=== PATIENT | female | born 1955 | race African-American/Black ===

== ENCOUNTER 2018-08-12 13:28 | Emergency (ER) | payer OTHER ==
--- NOTE | 2018-08-12 13:55 | PDOC ---
Rapid Medical Evaluation Chief Complaint: Blood Pressure Problem Time Seen by Provider: 08/12/18 13:50 Medical Evaluation: Allergies Allergy/AdvReac Type Severity Reaction Status Date / Time codeine Allergy Verified 08/12/18 13:47 08/12/18 13:51 I have performed a brief in-person evaluation of this patient. The patient presents with a chief complaint of:h/o HTN sent from urgent care due to feeling lightheadedness and elevated BP of 170s/90s . PT report going through lot of family issues with mother and has been anxious. Denies CP, SOB, palpitations, numbness or tingling sensation. Denies N/V Pertinent physical exam findings: no acute distress. heart RRR. lungs CTAB I have ordered the following: CBC,CMP, cardiac profile, EKG The patient will proceed to the ED for further evaluation. Discharge Disposition - Diagnosis Light-headed feeling - Discharge Dispostion Condition at time of disposition: Stable - Referrals - Patient Instructions - Post Discharge Activity
[2018-08-12 13:57] VITALS: TEMP 97.8; BMI 43.2
[2018-08-12] MEDS ORDERED: VALSARTAN 160 MG TABLET (UD) PO ONE (14:32)
[2018-08-12] MEDS ORDERED: amLODIPine BESYLATE 10 MG TABLET (FP) PO ONE (14:32)
[2018-08-12 14:33] LABS: BASO % 1.1 % (0-2.0); EOS % 3.7 % (0-4.5); HEMATOCRIT 41.8 % (35.4-49); HEMOGLOBIN 14.4 GM/dL (11.7-16.9); LYMPH % 30.6 % (8-40); MCH 28.9 pg (25.7-33.7); MCHC 34.5 g/dl (32.0-35.9); MEAN CELL VOLUME 83.7 fl (80-96); MEAN PLT VOLUME 8.8 fl (7.5-11.1); MONO % 9.5 % (3.8-10.2); NEUT % 55.1 % (42.8-82.8); PLATELET COUNT 254 K/MM3 (134-434); RBC 4.99 M/mm3 (4.00-5.60); WHITE BLOOD COUNT 6.5 K/mm3 (4.0-10.0)
[2018-08-12] MEDS ORDERED: amLODIPine BESYLATE 5 MG TABLET (FP) ONE (14:34)
[2018-08-12] MEDS ORDERED: VALSARTAN 80 MG TABLET (UD) ONE (14:34)
[2018-08-12 15:04] LABS: ALBUMIN 3.9 g/dl (3.4-5.0); ALK PHOS 105 U/L (45-117); ANION GAP 6 MMOL/L (8-16); BILIRUBIN,TOTAL 1.1 mg/dL (0.2-1); BLOOD UREA NITROGEN 17 mg/dL (7-18); CALCIUM 9.4 mg/dL (8.5-10.1); CHLORIDE 97 mmol/L (98-107); CO2 33 mmol/L (21-32); CREATININE 1.1 mg/dL (0.55-1.3); GLUCOSE,RANDOM 177 mg/dL (74-106); SGOT/AST 39 U/L (15-37); SGPT/ALT 35 U/L (13-61); SODIUM 137 mmol/L (136-145)
--- NOTE | 2018-08-12 15:28 | PDOC ---
History of Present Illness - General Chief Complaint: Blood Pressure Problem Stated Complaint: SENT BY PCP/HYPERTENSION Time Seen by Provider: 08/12/18 13:50 History Source: Patient Exam Limitations: No Limitations - History of Present Illness Initial Comments: 08/12/18 15:19 62 yo female pmh of DM, HTN and HLD presents to the ED from urgent care for elevated BP. Pt states she has been having a strange dull sensation over the top of her head for the past couple of days not described as past migraines she has had which was the reason for her urgent care visit. BP in the 170s found at urgent care, baseline 1302-140s, pt told to go to ER. Pt denies LOC, ZHANG, changes in vision or speech, weakness or numbness down 1 side of her body, CP, SOB, back pain or abdominal pain. Pt states she feels at baseline and has no further complaints Past History - Past Medical History Allergies/Adverse Reactions: Allergies Allergy/AdvReac Type Severity Reaction Status Date / Time codeine Allergy Verified 08/12/18 13:47 Home Medications: Ambulatory Orders Amlodipine Besylate [Norvasc -] 10 mg PO DAILY 08/12/18 Aspirin [ASA -] 81 mg PO DAILY 08/12/18 Azelastine HCl [Astepro] 1 - 2 spr NS BID 08/12/18 Chlorthalidone [Hygroton -] mg PO DAILY 08/12/18 Flu Vac Qs 18-19(4Yr Up)Maira/Pf [Flucelvax Quad 9611-1138 Syr] mcg IM ASDIR 08/12 Fluticasone Prop 0.05% Nasal [Flonase -] 1 - 2 spray NS DAILY 08/12/18 Metformin HCl [Glucophage] mg PO ASDIR 08/12/18 Potassium Chloride [Klor-Con] meq PO DAILY 08/12/18 Simvastatin mg PO HS 08/12/18 Valsartan 160 mg PO DAILY 08/12/18 Asthma: Yes COPD: No Diabetes: Yes HTN: Yes Hypercholesterolemia: Yes - Suicide/Smoking/Psychosocial Hx Smoking History: Never smoked Review of Systems - Review of Systems Constitutional: No: Chills, Fever Respiratory: No: Shortness of Breath Cardiac (ROS): No: Chest Pain, Palpitations, Syncope ABD/GI: No: Nausea, Vomiting : No: Flank Pain, Incontinence Neurological: Yes: Other (dull sensation to top of her head. Resolved). No: Headache, Numbness, Paresthesia, Unsteady Gait, Ataxia, Dizziness *Physical Exam - Vital Signs Last Vital Signs Temp Pulse Resp BP Pulse Ox 97.8 F 91 H 18 173/103 H 98 08/12/18 13:56 08/12/18 14:27 08/12/18 14:27 08/12/18 14:27 08/12/18 13:56 - Physical Exam General Appearance: Yes: Nourished, Appropriately Dressed. No: Apparent Distress (pt resting comfortably on stretcher, on her phone) HEENT: positive: EOMI, CHELSIE, Normal Voice, Hearing Grossly Normal Neck: positive: Supple Respiratory/Chest: positive: Lungs Clear, Normal Breath Sounds. negative: Accessory Muscle Use, Crackles, Rales, Rhonchi, Wheezing Cardiovascular: positive: Regular Rhythm, Regular Rate, S1, S2. negative: Edema , JVD, Murmur Vascular Pulses: Dorsalis-Pedis (R): 4+, Doralis-Pedis (L): 4+ Gastrointestinal/Abdominal: positive: Flat, Soft. 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 negative : Facial Droop, Numbness, Sensory Deficit, Confused, Disoriented, Babinski Moderate Sedation - Procedure Monitoring Vital Signs: Procedure Monitoring Vital Signs Temperature 97.8 F 08/12/18 13:56 Pulse Rate 91 H 08/12/18 14:27 Respiratory Rate 18 08/12/18 14:27 Blood Pressure 173/103 H 08/12/18 14:27 O2 Sat by Pulse Oximetry (%) 98 08/12/18 13:56 ED Treatment Course - LABORATORY CBC & Chemistry Diagram: 08/12/18 14:19 08/12/18 14:19 - ADDITIONAL ORDERS Additional order review: Laboratory Results 08/12/18 14:19 Sodium 137 Potassium 4.0 Chloride 97 L Carbon Dioxide 33 H Anion Gap 6 L BUN 17 Creatinine 1.1 Creat Clearance w eGFR > 60 Random Glucose 177 H Calcium 9.4 Total Bilirubin 1.1 H AST 39 H ALT 35 Alkaline Phosphatase 105 Creatine Kinase 142 Troponin I < 0.02 Total Protein 8.0 Albumin 3.9 08/12/18 14:19 RBC 4.99 MCV 83.7 MCHC 34.5 RDW 13.0 MPV 8.8 Neutrophils % 55.1 Lymphocytes % 30.6 Monocytes % 9.5 Eosinophils % 3.7 Basophils % 1.1 - RADIOLOGY Radiology Studies Ordered: Category Date Time Status HEAD CT WITHOUT CONTRAST [CT] Stat CT Scan 08/12/18 15:14 Ordered - Medications Given in the ED: ED Medications Discontinued Medications Generic Name Dose Route Start Last Admin Trade Name Freq PRN Reason Stop Dose Admin Amlodipine Besylate 10 mg 08/12/18 14:32 08/12/18 14:36 Norvasc - PO 08/12/18 14:33 10 mg ONCE ONE Administration Valsartan 160 mg 08/12/18 14:32 08/12/18 14:36 Diovan - PO 08/12/18 14:33 160 mg ONCE ONE Administration Medical Decision Making - Medical Decision Making 08/12/18 17:14 62 yo female pmh of DM, HTN and HLD presents to the ED from urgent care for elevated BP. Pt states she has been having a strange dull sensation over the top of her head for the past couple of days not described as past migraines she has had which was the reason for her urgent care visit. BP in the 170s found at urgent care, baseline 1302-140s, pt told to go to ER. Pt denies LOC, ZHANG, changes in vision or speech, weakness or numbness down 1 side of her body, CP, SOB, back pain or abdominal pain. Pt states she feels at baseline and has no further complaints Pt admits to not taking her BP medications today because she was in a willingham to leavee the house but this is an isolated incident since she consistently takes her medications as prescribed. Pt also admits to recent stress due to her mother becoming ill. Vital show elevated BP, otherwise wnl EKG NSR Labs wnl, trop negative, no CP or atypical cardiac symptoms head CT no acute path Pt given home dosed BP medications, reduced BP and is safe for DC home with PCP fu and strict return precautions Understands plan *DC/Admit/Observation/Transfer Diagnosis at time of Disposition: Light-headed feeling, Elevated blood pressure reading - Discharge Dispostion Disposition: HOME Condition at time of disposition: Stable - Referrals Referrals: ON STAFF,NOT [Primary Care Provider] - - Patient Instructions Printed Discharge Instructions: DI for High Blood Pressure Additional Instructions: Please make an appointment with your primary care doctor within the next 48 hours, continue taking your home dosed medications. Return to the ER for new or concerning symptoms including but not limited to: chest pain, severe headaches, loss of consciousness, changes in vision or speech or weakness on 1 side of your body. Thank you - Post Discharge Activity
--- NOTE | 2018-08-12 15:28 | PDOC ---
Documentation entered by Margaret Calix SCRIBE, acting as scribe for Chay Islas MD. Attending Attestation - Resident Resident Name: Mike Worrell - ED Attending Attestation I have performed the following: I have examined & evaluated the patient, The case was reviewed & discussed with the resident, I agree w/resident's findings & plan - HPI HPI: 08/12/18 14:31 The patient is a 62 year old female, with a significant past medical history of hypertension, hyperlipidemia, diabetes, who presents to the emergency department from urgent care for hypertension today. She states she has been experiencing a dull headache to the top of her head since Saturday which prompted her urgent care visit. She denies any symptoms. She states she forgot to take her BP medications this morning. The patient denies chest pain, shortness of breath, and dizziness. The patient denies fever, chills, nausea, vomit, diarrhea and constipation. The patient denies dysuria, frequency, urgency and hematuria. Allergies: codeine - Physicial Exam PE: 08/12/18 14:32 GENERAL: The patient is awake, alert, and fully oriented, in no acute distress. HEAD: Normal with no signs of trauma. EYES: Pupils equal, round and reactive to light, extraocular movements intact, sclera anicteric, conjunctiva clear with no pallor. LUNGS: Breath sounds equal, clear to auscultation bilaterally. No wheeze/ crackles. HEART: Regular rate and rhythm, normal S1 and S2 without murmur or rub. ABDOMEN: Soft/nontender/nondistended. BS wnl. No guarding or rebound. No palpable masses. No hepatosplenomegaly. EXTREMITIES: Normal range of motion, no edema. NEURO: Mental status: The patient is alert and oriented x3. Cranial nerves: Cranial nerves II through XII are intact Motor: The upper extremities are 5 over 5 in all muscle groups. The lower extremities are 5 over 5 in all muscle groups. No pronator drift. Sensation: Sensation is intact to light touch throughout. Cerebellar: Ajrftp-akhpfw-brmy is normal in both upper extremities. Heel-knee- varela is normal in both lower extremities. Reflexes: 2+ and symmetric in the upper and lower extremities. Gait: Normal. Heel and toe walking are normal. Tandem gait is normal. - Medical Decision Making 08/12/18 15:18 62-year-old female with history of hypertension referred from urgent care for evaluation of elevated blood pressures in the setting of vague, mild headache since yesterday. no other red flags on history/PE, admits she missed her BP meds this morning. headache not concerning for infectious or vascular event, neuro intact labs sent and wnl ekg without acute ischemia - subtle ST changes precordial leads but has NO cardiopulmonary sxs whatsoever and negative troponin. no prior available for comparison ct head dose BP meds, reassess and dispo Heart Score/ECG Review #1 ECG reviewed & interpreted by me at: 14:44 General ECG Interpretation: Sinus Rhythm, Normal Rate (85), Normal Intervals ( qtc 445), No acute ischemic changes (<1mm st changes anterolateral leads,) Chay Islas MD: This documentation has been prepared by the Fifi maddox Amanda, SCRIBE, under my direction and personally reviewed by me in its entirety. I confirm that the documentation accurately reflects all work, treatment, procedures, and medical decision making performed by me.
--- NOTE | 2018-08-12 16:12 | EKG ---
Test Reason : Blood Pressure : / mmHG Vent. Rate : 085 BPM Atrial Rate : 085 BPM P-R Int : 186 ms QRS Dur : 088 ms QT Int : 374 ms P-R-T Axes : 060 049 015 degrees QTc Int : 445 ms NORMAL SINUS RHYTHM POSSIBLE ANTERIOR INFARCT , AGE UNDETERMINED ABNORMAL ECG NO PREVIOUS ECGS AVAILABLE Confirmed by MD Ramón, Keven ([id number]) on 08/12/2018 4:12:17 PM Referred By: Confirmed By:Keven Melgar MD
[2018-08-12 17:37] VITALS: BP 175/95; PULSE 92
== END 2018-08-12 18:07 | disposition home or self-care (01) ==
LOC: JER 13:28 → EDSEX 13:28 → JER 18:07
DX: I10 Essential (primary) hypertension (principal); E78.00 Pure hypercholesterolemia, unspecified; E11.9 Type 2 diabetes mellitus without complications; Z79.84 Long term (current) use of oral hypoglycemic drugs
CPT/HCPCS: 36415; 70450-TC; 80053; 82550; 84484; 85025; 93005; 93010; 99284-25

== ENCOUNTER 2018-08-18 18:29 | Emergency (ER) | payer OTHER ==
[2018-08-18 18:57] VITALS: BP 195/98; PULSE 100; TEMP 98; BMI 43.9
--- NOTE | 2018-08-18 18:57 | PDOC ---
Rapid Medical Evaluation Chief Complaint: Pain, Acute Time Seen by Provider: 08/18/18 18:53 Medical Evaluation: Allergies Allergy/AdvReac Type Severity Reaction Status Date / Time codeine Allergy Verified 08/18/18 18:53 08/18/18 18:54 I have performed a brief in-person evaluation of this patient. The patient presents with a chief complaint of: pain to left foot. Patient states s/p slipped on ice and fell back on backpack. Complaining of pain in left foot with weight bearing Pertinent physical exam findings: NAD even and unlabored breathing able to walk with a limp I have ordered the following: xray to left foot The patient will proceed to the ED for further evaluation. Discharge Disposition - Diagnosis Left ankle pain - Referrals - Patient Instructions - Post Discharge Activity
--- NOTE | 2018-08-18 21:48 | PDOC ---
History of Present Illness - General Chief Complaint: Pain, Acute Stated Complaint: FALL LEFT FOOT SWOLLEN Time Seen by Provider: 08/18/18 18:53 - History of Present Illness Initial Comments: 08/18/18 21:45 62-year-old female presents for evaluation of left ankle pain after slip and fall 2 nights ago. She describes an inversion-type injury. She has no other complaints she did not hit her head PMH medical history significant for hypertension. Past History - Past Medical History Allergies/Adverse Reactions: Allergies Allergy/AdvReac Type Severity Reaction Status Date / Time codeine Allergy Verified 08/18/18 18:53 Home Medications: Ambulatory Orders Amlodipine Besylate [Norvasc -] 10 mg PO DAILY 08/12/18 Aspirin [ASA -] 81 mg PO DAILY 08/12/18 Azelastine HCl [Astepro] 1 - 2 spr NS BID 08/12/18 Chlorthalidone [Hygroton -] mg PO DAILY 08/12/18 Flu Vac Qs -(4Yr Up)Maira/Pf [Flucelvax Quad 1279-2365 Syr] mcg IM ASDIR 08/12 Fluticasone Prop 0.05% Nasal [Flonase -] 1 - 2 spray NS DAILY 08/12/18 Metformin HCl [Glucophage] mg PO ASDIR 08/12/18 Potassium Chloride [Klor-Con] meq PO DAILY 08/12/18 Simvastatin mg PO HS 08/12/18 Valsartan 160 mg PO DAILY 08/12/18 Asthma: Yes COPD: No Diabetes: Yes HTN: Yes Hypercholesterolemia: Yes - Immunization History Immunization Up to Date: Yes - Suicide/Smoking/Psychosocial Hx Smoking History: Never smoked Hx Alcohol Use: No Drug/Substance Use Hx: No Review of Systems - Review of Systems Musculoskeletal: Yes: Joint Pain *Physical Exam - Vital Signs Last Vital Signs Temp Pulse Resp BP Pulse Ox 98.0 F 100 H 16 195/98 H 99 08/18/18 18:54 08/18/18 18:54 08/18/18 18:54 08/18/18 18:54 08/18/18 18:54 - Physical Exam Comments: 08/18/18 21:46 Left ankle skin color and temperature are normal. There is mild swelling about the lateral aspect of the ankle. There is no tenderness about the knee proximal fibula or along its distal coarse. No tenderness about the medial malleolus or lateral malleolus evidence base of the fifth metatarsal or navicular. Moderate tenderness over the ATFL. Is no instability or gross sensorimotor deficits. Neurovascularly intact. Moderate Sedation - Procedure Monitoring Vital Signs: Procedure Monitoring Vital Signs Temperature 98.0 F 08/18/18 18:54 Pulse Rate 100 H 08/18/18 18:54 Respiratory Rate 16 08/18/18 18:54 Blood Pressure 195/98 H 08/18/18 18:54 O2 Sat by Pulse Oximetry (%) 99 08/18/18 18:54 Medical Decision Making - Medical Decision Making 08/18/18 21:46 Left lateral ankle sprain. Weight-bear as tolerated with crutches and Aircast follow-up with orthopedic *DC/Admit/Observation/Transfer Diagnosis at time of Disposition: Left ankle pain, Ankle sprain - Discharge Dispostion Disposition: HOME Condition at time of disposition: Stable Decision to Admit order: No - Referrals Referrals: ON STAFF,NOT [Primary Care Provider] - Bartolome Real DO [Staff Physician] - - Patient Instructions Printed Discharge Instructions: Ankle Sprain, DI for Ankle Sprain Additional Instructions: Only Tylenol fear pain. Do not take anti-inflammatories because of the blood pressure medication your own. You may weight-bear as tolerated with crutches and Aircast. Follow-up with orthopedic surgery in 1-2 days for further evaluation and treatment options and return to the emergency room for worsening symptoms. - Post Discharge Activity
== END 2018-08-18 22:17 | disposition home or self-care (01) ==
LOC: JERFT 18:29
DX: S93.402A Sprain of unspecified ligament of left ankle, initial encounter (principal); W00.2XXA Other fall from one level to another due to ice and snow, initial encounter; Y93.89 Activity, other specified; Y92.89 Other specified places as the place of occurrence of the external cause; Y99.8 Other external cause status
CPT/HCPCS: 73610-TC-LT-FY; 73630-TC-LT; 99281-25

== ENCOUNTER 2020-12-30 06:07 | Emergency (ER) | payer BC, OTHER ==
[2020-12-30 06:31] VITALS: BMI 37.2
[2020-12-30] MEDS ORDERED: SODIUM CHLORIDE 0.9% 500 ML INFUS.BAG IV ONE (07:21)
[2020-12-30] MEDS ORDERED: ACETAMINOPHEN 500 MG TABLET (FP) PO ONE (07:21)
[2020-12-30] MEDS ORDERED: ACETAMINOPHEN INJECTION 100 ML IVPB ONE (07:30)
[2020-12-30 08:31] LABS: EPI CELLS >36 /uL (0-25.1); HYALINE CASTS 4 /uL (0-3.1); URINE APPEARANCE CLOUDY; URINE BACTERIA 3341 /uL (0-1359); URINE BILIRUBIN NEGATIVE (NEGATIVE); URINE COLOR YELLOW; URINE GLUCOSE (UA) NEGATIVE (NEGATIVE); URINE KETONE NEGATIVE (NEGATIVE); URINE LEUK ESTERASE NEGATIVE (NEGATIVE); URINE NITRITE NEGATIVE (NEGATIVE); URINE PROTEIN 1+ (NEGATIVE); URINE RBC 14 /uL (0-23.9); URINE WBC 53 /uL (0-25.8)
[2020-12-30 08:58] LABS: BASO % 1.1 % (0-2.0); EOS % 4.6 % (0-4.5); HEMATOCRIT 38.2 % (32.4-45.2); HEMOGLOBIN 13.2 GM/dL (10.7-15.3); LYMPH % 26.3 % (8-40); MCHC 34.6 g/dl (32.0-36.0); MEAN CELL VOLUME 80.9 fl (80-96); MEAN PLT VOLUME 8.6 fl (7.5-11.1); MONO % 9.9 % (3.8-10.2); NEUT % 58.1 % (42.8-82.8); PLATELET COUNT 251 10^3/uL (134-434); RBC 4.73 M/mm3 (3.60-5.2); WHITE BLOOD COUNT 6.4 K/mm3 (4.0-10.0)
[2020-12-30 09:13] LABS: CHLORIDE 102 mmol/L (98-107); SODIUM 139 mmol/L (136-145)
[2020-12-30 09:16] LABS: CALCIUM 9.3 mg/dL (8.5-10.1)
[2020-12-30 09:17] LABS: ANION GAP 8 MMOL/L (8-16); BLOOD UREA NITROGEN 25.4 mg/dL (7-18); CO2 29 mmol/L (21-32); GLUCOSE,RANDOM 146 mg/dL (74-106); LIPASE 97 U/L (73-393)
[2020-12-30 09:19] LABS: CREATININE 1.3 mg/dL (0.55-1.3); SGOT/AST 50 U/L (15-37); SGPT/ALT 31 U/L (13-61)
[2020-12-30 09:20] LABS: TOT PROT 8.1 g/dl (6.4-8.2)
[2020-12-30 09:21] LABS: ALK PHOS 85 U/L (45-117)
[2020-12-30] MEDS ORDERED: KETOROLAC TROMETHAMINE 15 MG/ML VIAL IVPUSH ONE (11:08)
[2020-12-30] MEDS ORDERED: KETOROLAC TROMETHAMINE 15 MG/ML VIAL ONE (11:26)
[2020-12-30 11:39] VITALS: BP 157/70; PULSE 74; TEMP 98.1
== END 2020-12-30 11:39 | disposition home or self-care (01) ==
LOC: JER 06:07
PROC: 3E0333Z Introduction of Anti-inflammatory into Peripheral Vein, Percutaneous Approach (ICD-10-PCS; principal; 2020-12-30)
DX: N20.0 Calculus of kidney (principal); M54.5 Low back pain
CPT/HCPCS: 36415; 74177-TC; 80053; 81003; 82550; 82553; 83605; 83690; 84484; 85025; 87086; 93005; 93010; 99285-25; Q9967

== ENCOUNTER 2023-04-05 16:29 | Emergency (ER) | payer BC ==
[2023-04-05 16:34] VITALS: BP 163/89; PULSE 97; RESP 18; TEMP 98.2; BMI 38.7
[2023-04-05] MEDS ORDERED: ALBUTEROL SO4 2.5/IPRATROPIUM 0.5 INH SOL 3 ML VIAL.NEB. NEB ONE ×2 (17:38→17:43)
[2023-04-05] MEDS ORDERED: predniSONE 20 MG TABLET (UD) PO ONE (19:29)
[2023-04-05] MEDS ORDERED: predniSONE 20 MG TABLET (UD) ONE (19:30)
== END 2023-04-05 19:35 | disposition home or self-care (01) ==
LOC: JER 16:29 → JERFT 16:29
PROC: 3E0F7GC Introduction of Other Therapeutic Substance into Respiratory Tract, Via Natural or Artificial Opening (ICD-10-PCS; principal; 2023-04-05)
DX: R05.9 Cough, unspecified (principal); J40 Bronchitis, not specified as acute or chronic
CPT/HCPCS: 71046-TC-FY; 99283-25

== ENCOUNTER 2023-08-28 17:47 | Emergency (ER) | payer BC ==
[2023-08-28 18:00] VITALS: BMI 31.3
[2023-08-28] MEDS ORDERED: ACETAMINOPHEN 325 MG TABLET (FP) ONE (19:53)
[2023-08-28] MEDS: ACETAMINOPHEN 500 MG TABLET (FP) PO ONE (19:55)
[2023-08-28 20:38] LABS: BASO % 0.8 % (0-2.0); EOS % 17.3 % (0-4.5); HEMATOCRIT 39.1 % (32.4-45.2); HEMOGLOBIN 12.9 GM/dL (10.7-15.3); LYMPH % 29.2 % (8-40); MCH 27.6 pg (25.7-33.7); MEAN CELL VOLUME 83.7 fl (80-96); MEAN PLT VOLUME 8.8 fl (7.5-11.1); MONO % 6.8 % (3.8-10.2); NEUT % 45.9 % (42.8-82.8); PLATELET COUNT 291 10^3/uL (134-434); RBC 4.67 M/mm3 (3.60-5.2); RDW 13.4 % (11.6-15.6); WHITE BLOOD COUNT 9.3 K/mm3 (4.0-10.0)
[2023-08-28 21:12] LABS: POTASSIUM 3.8 mmol/L (3.5-5.1)
[2023-08-28 21:14] LABS: CALCIUM 10.5 mg/dL (8.5-10.1)
[2023-08-28 21:15] LABS: ALBUMIN 4.2 g/dl (3.4-5.0); BLOOD UREA NITROGEN 28.4 mg/dL (7-18)
[2023-08-28 21:18] LABS: CREATININE 1.8 mg/dL (0.55-1.3)
[2023-08-28 21:19] LABS: BILIRUBIN,TOTAL 0.9 mg/dL (0.2-1); TOT PROT 7.8 g/dl (6.4-8.2)
[2023-08-28 22:27] LABS: EPI CELLS 22 /uL (0-25.1); HYALINE CASTS 1 /uL (0-3.1); PH,URINE 5.5 (5.0-8.0); URINE APPEARANCE CLOUDY; URINE BACTERIA 3277 /uL (0-1359); URINE BILIRUBIN NEGATIVE (NEGATIVE); URINE COLOR YELLOW; URINE GLUCOSE (UA) NEGATIVE (NEGATIVE); URINE KETONE NEGATIVE (NEGATIVE); URINE LEUK ESTERASE 1+ (NEGATIVE); URINE NITRITE NEGATIVE (NEGATIVE); URINE PROTEIN 1+ (NEGATIVE); URINE RBC 7 /uL (0-23.9); URINE WBC 152 /uL (0-25.8)
[2023-08-28 22:42] LABS: PHENCYCLIDINE,URINE NEGATIVE (NEGATIVE); URINE BENZODIAZEPINES NEGATIVE (NEGATIVE)
[2023-08-28 22:43] LABS: METHADONE, UR NEGATIVE (NEGATIVE); OPIATES, URI NEGATIVE (NEGATIVE); URINE BARBITURATES NEGATIVE (NEGATIVE)
[2023-08-28 22:51] LABS: COCAINE, UR NEGATIVE (NEGATIVE); URINE AMPHETAMINES NEGATIVE (NEGATIVE)
[2023-08-29 06:53] VITALS: TEMP 98.1
[2023-08-29] MEDS: SODIUM CHLORIDE 0.9% 500 ML INFUS.BAG IV ONE (09:14)
[2023-08-29] MEDS: SODIUM CHLORIDE 0.9% 1000 ML INFUS.BAG IV ONE (10:11)
[2023-08-29 13:17] LABS: POTASSIUM 3.6 mmol/L (3.5-5.1)
[2023-08-29 13:18] LABS: CALCIUM 8.6 mg/dL (8.5-10.1)
[2023-08-29 13:19] LABS: BLOOD UREA NITROGEN 24.7 mg/dL (7-18)
[2023-08-29 13:22] LABS: CREATININE 1.3 mg/dL (0.55-1.3)
[2023-08-29 15:00] VITALS: BP 147/61; PULSE 59; RESP 20
== END 2023-08-29 15:00 | disposition home or self-care (01) ==
LOC: JER 17:47
DX: R45.851 Suicidal ideations (principal)
CPT/HCPCS: 36415; 80048; 80053; 80307; 81003; 82962; 84443; 85025; 87086; 99284-25